=== PATIENT | male | born 1955 | race Caucasian/White ===

== ENCOUNTER 2023-10-12 16:52 | Emergency (ER) | payer MEDICARE, SELFPAY ==
--- NOTE | ~2023-10-12 | XR_ITS ---
XR chest 2V 10/12/2023 18:52 Indication: Cough with fever Procedure: 2 view chest Comparison: No prior studies for comparison. Findings: There is bibasilar airspace disease, consistent with pneumonia. No significant effusion. No edema or pneumothorax. Status post median sternotomy. There is a prosthetic aortic valve. Heart size is normal. Impression: 1: Bibasilar airspace disease, compatible with pneumonia. Reviewed, dictated and finalized at location A. RUMENT PERSON Impression: 1: Bibasilar airspace disease, compatible with pneumonia.
--- NOTE | 2023-10-12 18:01 | ED.URI ---
HPI - URI/Sore Throat General Chief Complaint: Upper Respiratory Infection Stated Complaint: bodyaches,fever,general weakness Time Seen by Provider: 10/12/23 18:01 Source: patient Mode of arrival: ambulatory Limitations: no limitations History of Present Illness HPI Narrative: Willian is a 68-year-old male patient presenting to the clinic today with complaints of body aches, fever, general weakness x1 week. Did at home COVID test and they were negative. Reports he feels very fatigued and is coughing up green/yellow phlegm. Fever 38.3? C in the clinic with a SpO2 of 96% on room air. MD elicited complaint: sore throat and nasal congestion Related Data Home Medications Medication Instructions Recorded Confirmed aspirin 81 mg tablet,delayed 81 mg PO DAILY 08/25/21 01/25/23 release lovastatin 10 mg tablet 10 mg PO DAILY 08/25/21 01/25/23 tamsulosin 0.4 mg capsule 0.4 mg PO DAILY 08/25/21 01/25/23 Allergies Allergy/AdvReac Type Severity Reaction Status Date / Time No Known Allergies Allergy Mild Verified 01/25/23 09:00 Review of Systems Review of Systems: Pertinent positives per HPI. Patient denies any rash, headache, visual changes, dizziness, cough, shortness of breath, chest pain, palpitations, nausea, vomiting, diarrhea, constipation, abdominal pain, or any urinary issues. [facility] Past Medical History Medical History BPH (benign prostatic hyperplasia) Chronic cough Hypercholesterolemia Obstructive sleep apnea Pulmonary hypertension Surgical History Surgical History S/P AVR (aortic valve replacement) 11/21/2013, bicuspid aortic valve, bovine prosthesis S/P tonsillectomy S/P vasectomy Family History Family History Father Parkinson disease Carcinoma of colon Dementia Sibling Malignant neoplasm of prostate Mother Hypertension Social History Social History Social History: , lives with his , retired cnc milling machinist Smoking status: Never smoker Living arrangements: with family Occupation/Education: retired Comments At the time of my signature, I reviewed and agree with the nursing past medical, surgical, social, and family history. There is no relevant family history pertinent to the patient complaint. Exam Narrative: General: Well-developed, well nourished, in no apparent distress Head: Normocephalic, atraumatic Eyes: Pupils equally round and reactive to light bilaterally, EOM intact, sclera and conjunctive clear, no discharge, lids normal Ears: TMs intact and clear, ear canals clear, no drainage, grossly hearing normal. Nose: Nares patent, no discharge, no inflammation, no sinus tenderness. Mouth: Oral pharynx without lesions or masses, good dentition, MMM. Neck: Supple, trachea midline, no enlargement of anterior or posterior cervical nodes, no thyroid masses or goiter palpable. Cardio: Regular rate and rhythm, s1 and s2 normal, no murmur appreciated. Resp: Crackles in bilateral lower bases, no rhonchi, wheezing or rubs Course Course Emergency Course: Portions of this record may have been created with voice recognition software. Level of Care: Express Care Visit Vital Signs Vital signs: Vital signs reviewed MDM - URI/Sore Throat MDM Narrative Medical decision making narrative: At the time of visit patient is resting comfortably on the exam table. Patient appears to be nontoxic. Influenza testing was negative. Chest x-ray was performed and shows bibasilar pneumonia. Prescription for Augmentin, azithromycin, and albuterol inhaler was sent to the pharmacy. Patient is able to speak in full sentences without being in respiratory distress. Patient was given send spirometer in the clinic today. Supportive measures were discussed
[2023-10-12 18:27] VITALS: BP 105/59; PULSE 96; RESP 18; TEMP 38.3; O2SAT 96
== END 2023-10-12 19:17 | disposition home or self-care (01) ==
PROVIDERS: Emergency Provider Nurse Practitioner Family; PCP Family Medicine
DX: J18.9 Pneumonia, unspecified organism (principal)
CPT/HCPCS: 71046; 87804; 99213; G0463

== ENCOUNTER → 2023-12-18 12:16 | Outpatient (CLI) | payer MEDICARE, SELFPAY ==
--- NOTE | ~2023-12-18 | MR_ITS ---
EXAMINATION: MR shoulder RT wo con DATE: 12/18/2023 13:10 INDICATION: Nontraumatic incomplete right rotator cuff tear TECHNIQUE: Magnetic resonance imaging (MRI) of the right shoulder was performed without intravenous c ontrast. Sequences included axial PD-weighted FS FSE, coronal oblique PD-weighted FS FSE, coronal obl ique T2-weighted FS FSE, sagittal PD-weighted FS FSE, and sagittal T1-weighted SE. COMPARISON: None. FINDINGS: Coracoacromial arch: The acromion undersurface is flat in morphology (type I). The coracoacromial ligament is normal. Mode rate acromioclavicular osteoarthritis. Rotator cuff: Mild tendinopathy of the conjoined portion of the supraspinatus and infraspinatus tendons without dis crete tear. The teres minor tendon is normal. Mild subscapularis tendinopathy without tear. Normal ro tator cuff muscle bulk and signal. Biceps tendon, glenoid labrum and glenohumeral cartilage: Long head of the biceps tendon is normal. There is a tear at the superior glenoid labrum beginning an teriorly at the 1:00 position and extending posteriorly to the 11:00 position mild partial-thickness cartilage loss with smooth chondral surface and without degenerative subchondral changes along the bethea peromedial and inferomedial aspect of the humeral head and along the cephalad glenoid consistent with mild osteoarthritis. Fluid: Physiologic amount of fluid in the glenohumeral joint and biceps tendon sheath. No loose osteochondr al bodies. No abnormal fluid in the subacromial/subdeltoid bursa to suggest bursitis. Bones, other: Normal marrow signal with no edema, fracture or abnormal marrow replacing process. There is thickenin g of the capsule at the axillary recess and increased tissue replacing the normal T1 fat signal at th e rotator cuff interval, both findings which can be seen in the setting of adhesive capsulitis. IMPRESSION: 1. Mild tendinopathy without tear at the subscapularis tendon and conjoined portion of the supraspina tus and infraspinatus tendons. 2. Mild glenohumeral osteoarthritis with tear at the base of the superior glenoid labrum. 3. Moderate acromioclavicular osteoarthritis. 4. Thickening of the joint capsule at the axillary recess and increased soft tissue density replacing the normal fat signal at the rotator cuff interval, both findings which can be seen in the setting o f adhesive capsulitis which is a clinical diagnosis. Reviewed, dictated and finalized at location B. EL SETTER IMPRESSION: 1. Mild tendinopathy without tear at the subscapularis tendon and conjoined por tion of the supraspinatus and infraspinatus tendons. 2. Mild glenohumeral osteoarthritis with tear at the base of the superior gleno id labrum. 3. Moderate acromioclavicular osteoarthritis. 4. Thickening of the joint capsule at the axillary recess and increased soft ti ssue density replacing the normal fat signal at the rotator cuff interval, both findings which can be seen in the setting of adhesive capsulitis which is a cl inical diagnosis.
== END ==
PROVIDERS: PCP Family Medicine; Visit Provider Orthopaedic Surgery
DX: M75.111 Incomplete rotator cuff tear or rupture of right shoulder, not specified as traumatic (principal); M19.011 Primary osteoarthritis, right shoulder
CPT/HCPCS: 73221